=== PATIENT | male | born 2005 | race Caucasian/White ===

== ENCOUNTER 2023-01-21 18:49 | Emergency (ER) | payer MEDICAID, OTHER ==
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
[2023-01-21 21:16] VITALS: BP 112/61
== END 2023-01-21 21:19 | disposition home or self-care (01) ==
LOC: ER FS 18:53
DX: S06.0X0A Concussion without loss of consciousness, initial encounter (principal); S00.83XA Contusion of other part of head, initial encounter; S00.81XA Abrasion of other part of head, initial encounter; S60.512A Abrasion of left hand, initial encounter; S60.511A Abrasion of right hand, initial encounter; Z28.310 Unvaccinated for COVID-19; V28.99XA Unspecified rider of other motorcycle injured in noncollision transport accident in traffic accident, initial encounter; Y92.410 Unspecified street and highway as the place of occurrence of the external cause
CPT/HCPCS: 70450; 70486